=== PATIENT | male | born 1935 | race Caucasian/White ===

== ENCOUNTER → 2016-06-20 | Outpatient (CLI) | payer OTHER, BC | LOC: BHCLAF 09:30 | PROVIDERS: ATTEND Internal Medicine Cardiovascular Disease | DX: I25.10 Atherosclerotic heart disease of native coronary artery without angina pectoris (principal); I10 Essential (primary) hypertension; I65.29 Occlusion and stenosis of unspecified carotid artery; E78.5 Hyperlipidemia, unspecified; Z95.1 Presence of aortocoronary bypass graft | CPT/HCPCS: 93005-PO ==

== ENCOUNTER 2016-06-28 09:10 | Emergency (ER) | payer OTHER, BC ==
[2016-06-28 09:21] VITALS: PULSE 80; RESP 16; TEMP 96.8; O2SAT 95
--- NOTE | 2016-06-28 10:09 | UCPHY ---
H & P Time Seen by Provider: 06/28/16 09:41 Patient Type: Established HPI/ROS: This patient complains of pain and swelling at the left 1st metatarsophalangeal joint over the past 4 days. Symptoms are achy in nature and 4/10 intensity at baseline increasing 6/10 with walking and movement. He reports associated tenderness to the area explaining that the bed sheets bother him. He has never had these symptoms before. ROS: No fevers or other constitutional symptoms. Musculoskeletal: No other joint pains and no recent trauma. Neuro: No numbness. 5 point ROS is otherwise negative. Past Medical/Surgical History: Hypertension CABG Smoking Status: Never smoked Physical Exam: Physical Exam Vital signs are normal. General: No acute distress HEENT: Atraumatic. Eyes: Pupils equal and react to light. Extraocular motions are intact. Lungs: No respiratory distress. Cardiac: Brisk capillary refill is intact throughout. Pulses are 2+ and symmetric in the affected extremity. Skin: No rash or pallor. Extremities: Atraumatic normal except for left foot 1st metatarsophalangeal joint which reveals moderate swelling, mild erythema and tenderness. He has increased pain with range of motion of the toe. No other abnormal findings. No significant warmth to touch. Neuro: Alert with no sensorimotor deficits to the affected toe. Initial differential diagnosis: Gout, pseudogout, septic joint Constitutional: Initial Vital Signs Temperature (C) 36.0 C 06/28/16 09:18 Heart Rate 80 06/28/16 09:18 Respiratory Rate 16 06/28/16 09:18 O2 Sat (%) 95 06/28/16 09:18 O2 Delivery Mode Room Air Allergies/Adverse Reactions: No Known Allergies Allergy (Verified 06/28/16 09:17) Home Medications: Medication Instructions Recorded Aspirin [Aspirin 81mg (*)] 81 mg PO DAILY 06/11/14 Atorvastatin Calcium [Lipitor 80 80 mg PO HS 06/11/14 mg] Clopidogrel Bisulfate [Plavix (*)] 75 mg PO DAILY06 06/11/14 Hydrochlorothiazide [HCTZ (*)] 12.5 mg PO DAILY06 06/11/14 Metoprolol Tartrate [Lopressor 25 25 mg PO DAILY06 06/11/14 mg (*)] Ramipril [Altace] 10 mg PO DAILY06 06/11/14 Acetaminophen [Ofirmev] 06/28/16 Colchicine 0.6 mg PO AD #9 tablet 06/28/16 MDM/Departure - [facility] ED Course/Re-evaluation: This patient does not appear acutely ill. Findings appear pretty classic for gout. I counseled him regarding this. 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 Prescriptions: Colchicine 0.6 mg PO AD #9 tablet Referrals: Eugene Zamorano DO [Primary Care Provider] - As per Instructions - PQRS PQRS Measurement: 134: Depression screening and followup, PRIME MD-PHQ2 (12 years and older) Over the last 2 weeks, how often have you been bothered by any of the following problems? 1. Feeling down, depressed, or hopeless? 2. Little interest or pleasure in doing things? Patient answered no to both 1 and 2 130: Documentation of medications. Reviewed all patient medications, doses, route and frequency. 226: Do you smoke? [No.] 47: 65 and older: Advanced care planning. Patient designates surrogate decision maker as [Patient has advanced directive.] 51: 18 years old and older with diagnosis of COPD, spirometry performance. NA 52: 18 years old and older with COPD and symptoms of COPD or FEV1<60% predicted prescribed a B Agonist. NA
== END 2016-06-28 10:15 | disposition home or self-care (01) ==
LOC: CED 09:10
DX: M10.072 Idiopathic gout, left ankle and foot (principal)
CPT/HCPCS: 99214-PO; G0463-PO

== ENCOUNTER → 2016-08-29 | Outpatient (CLI) | payer OTHER, BC | LOC: BHCLAF 09:15 | PROVIDERS: ATTEND Internal Medicine | DX: I25.10 Atherosclerotic heart disease of native coronary artery without angina pectoris (principal); E78.5 Hyperlipidemia, unspecified; I10 Essential (primary) hypertension | CPT/HCPCS: 93880-PO ==

== ENCOUNTER → 2016-08-30 | Outpatient (CLI) | payer OTHER, BC | LOC: BHFA 09:00 | PROVIDERS: ATTEND Internal Medicine Cardiovascular Disease | DX: I25.10 Atherosclerotic heart disease of native coronary artery without angina pectoris (principal); I10 Essential (primary) hypertension | CPT/HCPCS: 78452; 93017; A9500; J2785 ==

== ENCOUNTER 2017-04-26 16:01 | Emergency (ER) | payer OTHER, BC ==
[2017-04-26 16:20] VITALS: RESP 16; TEMP 98.1
[2017-04-26 16:50] LABS: % IMMATURE GRANULYOCYTES 0.5 % (0.0-1.1); ABSOLUTE IMMATURE GRANULOCYTES 0.07 10^3/uL (0.00-0.10); ADD DIFF? NO; ADD MORPH? NO; ADD SCAN? NO; ATYPICAL LYMPHOCYTE FLAG 0 (0-99); FRAGMENT RBC FLAG 0 (0-99); HEMATOCRIT 44.4 % (40.0-51.0); HEMOGLOBIN 15.4 g/dL (13.7-17.5); LEFT SHIFT FLG 10 (0-99); LIPEMIA HEMOLYSIS FLAG 90 (0-99); MEAN CELL HEMOGLOBIN 31.5 pg (27.9-34.1); MEAN CELL HEMOGLOBIN CONCENTR. 34.7 g/dL (32.4-36.7); MEAN CELL VOLUME 90.8 fL (81.5-99.8); MEAN PLATELET VOLUME 9.9 fL (8.7-11.7); PLATELET CLUMPS FLAG 0 (0-99); PLATELET COUNT 274 10^3/uL (150-400); RED BLOOD CELL COUNT 4.89 10^6/uL (4.40-6.38); RED CELL DISTRIBUTION WIDTH 13.2 % (11.5-15.2)
--- NOTE | 2017-04-26 16:50 | EDPHY ---
H & P Time Seen by Provider: 04/26/17 16:18 HPI/ROS: HPI Upper abdominal pain. 81-year-old male by private vehicle. This patient reports that he received a flu shot 2 weeks ago this coming Monday. He reports that after this while at the gym on Monday and Monday he felt some body aches and some fatigue but then this cleared. He reports that this last Monday while at home he developed right upper quadrant pain described as a deep cramping ache that resolved on its own. He felt fine up until today when the pain came back. He was seen at an urgent care. He was then sent to the emergency department for evaluation. He states right now he does not have any significant pain. He reports having some shortness of breath associated with his pain. He otherwise denies any other associated signs or symptoms. His last meal was lunch earlier today. Last bowel movement earlier today. No bloody or melenic stool. He denies any urinary complaints. He has not had a fever. ROS: Constitutional: No fever, no chills. No weakness. Eyes: No discharge. No changes in vision. ENT: No sore throat. No nasal congestion or rhinorrhea. Respiratory: No cough. He had mild shortness of breath associated with the pain. Cardiac: No chest pain, no palpitations. Gastrointestinal: As above, no vomiting, no diarrhea. Genitourinary: No hematuria. No dysuria or increased frequency with urination. Musculoskeletal: No back pain. No neck pain. As above. Skin: No rashes. Neurological: No headache. No focal weakness or altered sensation. Past medical history: CABG, hypertension, hyperlipidemia. Social history: Nonsmoker. Currently here by himself. No alcohol. Physical Exam: General Appearance: Alert, no distress. This patient is responding to questions appropriately and in full sentences. This patient appears well- hydrated and well-nourished. Eyes: Pupils equal and round no pallor or injection. No lid edema, erythema or injection. Respiratory: There are no retractions, lungs are clear to auscultation with good air movement bilaterally. Cardiovascular: Regular rate and rhythm. No murmur. Gastrointestinal: Abdomen is soft and nontender, no masses, bowel sounds normal. No focal tenderness at McBurney's point. No Rendon sign. Neurological: Motor sensory function is grossly intact. Cranial nerves are normal. Gait is normal. Skin: Warm and dry, no rashes. Musculoskeletal: Neck is supple and nontender. Extremities are symmetrical. All joints range without pain or impingement. Psychiatric: No agitation. No depression. Database: EKG: EKG time is 5:59 p.m.; EKG shows a narrow complex normal sinus rhythm with a ventricular rate of 76. Left anterior fascicular block noted. Poor R-wave progression in the anterior leads. The AL, QRS, QT intervals are within normal limits. No evidence of right heart strain. Subtle ST depressions in inferior leads 2, 3 and AVF. Interpreted by me. Imaging: Chest x-ray PA and lateral; the cardiac mediastinal silhouette is unremarkable. Sternotomy wires. No evidence of infiltrate or pneumothorax. No acute cardiopulmonary disease process noted. Interpreted by me. CT pulmonary angiogram; no evidence of pulmonary embolism. No focal infiltrate or pneumonia. Possible pancreatic cancer and cholecystitis. Results were discussed with Dr. Tyrone Bhatt. Please see his report for further details. Right upper quadrant ultrasound; thickened gallbladder wall without significant inflammatory changes. No fluid. Multiple small freely movable gallstones seen. The ductal system is normal. Study otherwise unremarkable. Results were discussed with staff radiologist Dr. Xavier Mar. Procedures: Emergency department course: IV established. Vital signs reviewed. He provided us with a urine sample. He is not in any pain at this time. No nausea or vomiting. 7:00 p.m., discussed this patient's presentation and emergency department workup with on-call general surgeon Dr. Brendan Pulido. Plan will be to have the patient see Dr. Pulido in his office tomorrow for re-evaluation and further management. Dr. Pulido is aware of both the gallbladder findings as well as the pancreas findings seen on his CT. 7:15 p.m., patient re-evaluated. He is resting comfortably at this time. He has no pain. Repeat abdominal exam he is soft and without tenderness on palpation. I discussed the results of his emergency department workup with him in detail. I discussed the plan to have him seen by Dr. Pulido in the office tomorrow. He is in agreement with this plan. He understands his follow-up. Return to emergency department precautions were thoroughly reviewed with him. All of his questions were answered. He was discharged in good condition. Differential Diagnosis: The differential diagnosis on this patient includes but is not limited to biliary colic, cholecystitis, pulmonary embolism, pneumonia, costal chondritis. This represents a partial list of diagnoses considered. These considerations are based on history, physical exam, past history, reassessment and diagnostic testing. Smoking Status: Never smoked Constitutional: Initial Vital Signs Temperature (C) 36.7 C 04/26/17 16:15 Heart Rate 83 04/26/17 16:15 Respiratory Rate 16 04/26/17 16:15 Blood Pressure 140/76 H 04/26/17 16:15 O2 Sat (%) 93 04/26/17 16:15 O2 Delivery Mode Room Air Allergies/Adverse Reactions: No Known Allergies Allergy (Verified 04/26/17 16:43) Home Medications: Medication Instructions Recorded Aspirin [Aspirin 81mg (*)] 81 mg PO DAILY 06/11/14 Atorvastatin Calcium [Lipitor 80 80 mg PO HS 06/11/14 mg] Clopidogrel Bisulfate [Plavix (*)] 75 mg PO DAILY06 06/11/14 Hydrochlorothiazide [HCTZ (*)] 12.5 mg PO DAILY06 06/11/14 Metoprolol Tartrate [Lopressor 25 25 mg PO DAILY06 06/11/14 mg (*)] Ramipril [Altace] 10 mg PO DAILY06 06/11/14 Acetaminophen [Ofirmev] 06/28/16 Clarinex 04/26/17 Levitra 04/26/17 Vitamin C 04/26/17 Medical Decision Making - Diagnostics Imaging Results: Imaging Impressions Abdomen Ultrasound 04/26/17 16:45 Impression: 1. Tiny gallstones mobile within the gallbladder with mild gallbladder wall thickening and color flow enhancement suggestive of chronic cholecystitis. 2. Normal diameter common bile duct. 3. The pancreatic body and tail are obscured by overlying bowel gas. Findings discussed with Jared Du MD at 18:10 hour, 04/26/2017. Chest X-Ray 04/26/17 16:45 Impression: Radiographically similar to 06/11/2014. Dr. Jared Lam has also requested a CTA of the chest, which will be subsequently performed and separately reported. Chest/Thorax CTA 04/26/17 16:46 Impression: 1. Possible cholecystitis. Consider gallbladder ultrasound. 2. Suspect abnormal pancreatic tail. Recommend dedicated pancreatic CT, when the patient is clinically able. 3. Left lower pole thyroid enlargement with 15 mm mass. Consider irate ultrasound and correlation with thyroid function tests. 4. No pulmonary embolic disease. 5. Mild cardiomegaly with triple-vessel coronary artery disease. Results called and discussed with Jared Du MD, at 04/26/2017 17: 41 General information for patients regarding this examination can be found at [email or web address]. If you have questions or comments about this report, please contact me at (hospital) or [phone] (cell). - Data Points Laboratory Results: Laboratory Results 04/26/17 16:34 04/26/17 16:34 04/26/17 04/26/17 04/26/17 16:50 16:50 16:34 WBC RBC Hgb Hct MCV MCH MCHC RDW Plt Count MPV Neut % (Auto) Lymph % (Auto) [place] % (Auto) Eos % (Auto) Baso % (Auto) Nucleat RBC Rel Count Absolute Neuts (auto) Absolute Lymphs (auto) Absolute Monos (auto) Absolute Eos (auto) Absolute Basos (auto) Absolute Nucleated RBC Immature Gran % Immature Gran # Sodium 142 mEq/L mEq/L (134-144) Potassium 3.9 mEq/L mEq/L (3.5-5.2) Chloride 99 mEq/L mEq/L (97-110) Carbon Dioxide 27 mEq/l mEq/l (22-31) Anion Gap 16 mEq/L mEq/L (8-16) BUN 23 mg/dL mg/dL (7-23) Creatinine 0.9 mg/dL mg/dL (0.7-1.3) Estimated GFR > 60 Glucose 124 mg/dL H mg/dL (70-100) Calcium 9.3 mg/dL mg/dL (8.5-10.4) Total Bilirubin 1.5 mg/dL H mg/dL (0.1-1.4) Conjugated Bilirubin 0.2 mg/dL mg/dL (0.0-0.5) Unconjugated Bilirubin 1.3 mg/dL H mg/dL (0.0-1.1) AST 27 IU/L IU/L (17-59) ALT 50 IU/L IU/L (21-72) Alkaline Phosphatase 90 IU/L IU/L (38-126) Troponin I < 0.012 ng/mL ng/mL (0.000-0.034) Total Protein 6.9 g/dL g/dL (6.3-8.2) Albumin 3.8 g/dL g/dL (3.5-5.0) Lipase 83 IU/L IU/L (23-300) Urine Color YELLOW Urine Appearance CLEAR Urine pH 6.5 (5.0-7.5) Ur Specific [place] <= 1.005 (1.002-1.030) Urine Protein NEGATIVE (NEGATIVE) Urine Ketones NEGATIVE (NEGATIVE) Urine Blood NEGATIVE (NEGATIVE) Urine Nitrate NEGATIVE (NEGATIVE) Urine Bilirubin NEGATIVE (NEGATIVE) Urine Urobilinogen 0.2 EU EU (0.2-1.0) Ur Leukocyte Esterase NEGATIVE (NEGATIVE) Urine RBC NONE SEEN /hpf /hpf (0-3) Urine WBC NONE SEEN /hpf /hpf (0-3) Ur Epithelial Cells TRACE /lpf /lpf (NONE-1+) Urine Glucose NEGATIVE (NEGATIVE) 04/26/17 16:34 WBC 15.27 10^3/uL H 10^3/uL (3.80-9.50) RBC 4.89 10^6/uL 10^6/uL (4.40-6.38) Hgb 15.4 g/dL g/dL (13.7-17.5) Hct 44.4 % % (40.0-51.0) MCV 90.8 fL fL (81.5-99.8) MCH 31.5 pg pg (27.9-34.1) MCHC 34.7 g/dL g/dL (32.4-36.7) RDW 13.2 % % (11.5-15.2) Plt Count 274 10^3/uL 10^3/uL (150-400) MPV 9.9 fL fL (8.7-11.7) Neut % (Auto) 78.3 % H % (39.3-74.2) Lymph % (Auto) 12.8 % L % (15.0-45.0) [place] % (Auto) 7.2 % % (4.5-13.0) Eos % (Auto) 0.9 % % (0.6-7.6) Baso % (Auto) 0.3 % % (0.3-1.7) Nucleat RBC Rel Count 0.0 % % (0.0-0.2) Absolute Neuts (auto) 11.97 10^3/uL H 10^3/uL (1.70-6.50) Absolute Lymphs (auto) 1.96 10^3/uL 10^3/uL (1.00-3.00) Absolute Monos (auto) 1.10 10^3/uL H 10^3/uL (0.30-0.80) Absolute Eos (auto) 0.13 10^3/uL 10^3/uL (0.03-0.40) Absolute Basos (auto) 0.04 10^3/uL 10^3/uL (0.02-0.10) Absolute Nucleated RBC 0.00 10^3/uL 10^3/uL (0-0.01) Immature Gran % 0.5 % % (0.0-1.1) Immature Gran # 0.07 10^3/uL 10^3/uL (0.00-0.10) Sodium Potassium Chloride Carbon Dioxide Anion Gap BUN Creatinine Estimated GFR Glucose Calcium Total Bilirubin Conjugated Bilirubin Unconjugated Bilirubin AST ALT Alkaline Phosphatase Troponin I Total Protein Albumin Lipase Urine Color Urine Appearance Urine pH Ur Specific [place] Urine Protein Urine Ketones Urine Blood Urine Nitrate Urine Bilirubin Urine Urobilinogen Ur Leukocyte Esterase Urine RBC Urine WBC Ur Epithelial Cells Urine Glucose Departure - Departure Disposition: Home, Routine, Self-Care Clinical Impression: Right upper quadrant abdominal pain, Gallstones, Cholecystitis Condition: Good Instructions: Cholecystitis (ED) Additional Instructions: Read and follow provided instructions. Follow-up with Dr. Brendan Pulido, general surgeon, tomorrow in his office as discussed. Call his office at 8:30 to 9:00 a.m. tomorrow morning for appointment time. I spoke with Pieter youssef. He is expecting to see you tomorrow in his office. Dr. Pulido will also talk to you about your pancreas and further management. He will have access to all of your blood work and imaging studies done in the emergency department domon[facility]. Return to the emergency department at the [facility] off of [facility] for worsening pain, persisting pain, fever, vomiting or other serious concerns. Referrals: Brendan Pulido MD [Medical Doctor] - As per Instructions
[2017-04-26 16:54] LABS: COLOR YELLOW; LEUKOCYTE ESTERASE,URINE NEGATIVE (NEGATIVE); NITRITE,URINE NEGATIVE (NEGATIVE); PH,URINE 6.5 (5.0-7.5)
[2017-04-26 16:57] LABS: ALANINE AMINOTRANSFERASE 50 IU/L (21-72); ALBUMIN 3.8 g/dL (3.5-5.0); ALKALINE PHOSPHATASE 90 IU/L (38-126); ANION GAP 16 mEq/L (8-16); ASPARTATE AMINOTRANSFERASE 27 IU/L (17-59); BILIRUBIN,TOTAL 1.5 mg/dL (0.1-1.4); BILIRUBIN-CONJUGATED 0.2 mg/dL (0.0-0.5); BILIRUBIN-UNCONJUGATED 1.3 mg/dL (0.0-1.1); CALCIUM 9.3 mg/dL (8.5-10.4); CARBON DIOXIDE 27 mEq/l (22-31); CHLORIDE 99 mEq/L (97-110); CREATININE 0.9 mg/dL (0.7-1.3); GLOMERULAR FILTRATION RATE > 60; GLUCOSE 124 mg/dL (70-100); POTASSIUM 3.9 mEq/L (3.5-5.2); SODIUM 142 mEq/L (134-144); TOTAL PROTEIN 6.9 g/dL (6.3-8.2)
[2017-04-26 17:05] LABS: RBC,URINE NONE SEEN /hpf (0-3); WBC,URINE NONE SEEN /hpf (0-3)
[2017-04-26] MEDS ORDERED: IOPAMIDOL (ISOVUE 370) 100 ML BTL IV ONE (17:06)
--- NOTE | 2017-04-26 18:00 | CPEKG ---
Heart Rate: 76 RR Interval: 789 P-R Interval: 168 QRSD Interval: 94 QT Interval: 396 QTC Interval: 446 P Enloe: 85 QRS Enloe: -81 T Wave Enloe: -82 EKG Severity - ABNORMAL ECG - EKG Impression: SINUS RHYTHM EKG Impression: PROBABLE LEFT ATRIAL ABNORMALITY EKG Impression: LEFT ANTERIOR FASCICULAR BLOCK EKG Impression: BORDERLINE R WAVE PROGRESSION, ANTERIOR LEADS EKG Impression: inferior STT wave changes, cannot r/o ischemia Electronically Signed By: Leo Neumann 28-Apr-2017 06:15:02
[2017-04-26 19:42] VITALS: BP 150/74; PULSE 86; O2SAT 94
== END 2017-04-26 19:21 | disposition home or self-care (01) ==
LOC: CED 16:01
DX: K80.10 Calculus of gallbladder with chronic cholecystitis without obstruction (principal); I10 Essential (primary) hypertension; Z79.82 Long term (current) use of aspirin
CPT/HCPCS: 71020; 71275; 76705; 93005; 99285; Q9967; 80048-PO; 80076-PO; 81003-PO; 81015-PO; 83690-PO; 84484-PO; 85025-PO

== ENCOUNTER → 2017-04-27 | Outpatient (CLI) | payer OTHER, BC ==
[~2017-04-27] MED LIST: IOPAMIDOL (ISOVUE-300) 100 ML BTL ONE
== END ==
LOC: FIMAGING 16:49
PROVIDERS: ATTEND Surgery
DX: K81.9 Cholecystitis, unspecified (principal); R19.07 Generalized intra-abdominal and pelvic swelling, mass and lump
CPT/HCPCS: 74178; Q9967

== ENCOUNTER 2017-05-04 08:30 | Observation (INO) | payer OTHER, BC ==
[2017-06-23] MEDS ORDERED: LR 1,000 ML IV SCH (06:29)
[2017-06-23] MEDS ORDERED: ONDANSETRON 4 MG/2 ML VIAL IVP ONE (06:29)
[2017-06-23] MEDS ORDERED: ceFAZolin 2 GM/SWFI 2 GM/20 ML SYR IVP ONE (06:29)
[2017-06-23] MEDS ORDERED: LR 1,000 ML IV ONE (06:30)
[2017-06-23] MEDS ORDERED: PROPOFOL 200 MG/20 ML VIAL ONE (06:56)
[2017-06-23] MEDS ORDERED: fentaNYL 100 MCG/2 ML INJ ONE ×2 (06:56→10:14)
[2017-06-23] MEDS ORDERED: BUPIVACAINE 0.25% 30 ML SDV ONE (07:00)
--- NOTE | 2017-06-23 07:02 | PDANEPAE ---
ANE History of Present Illness cholelithiasis here for cholecystectomy ANE Past Medical History - Cardiovascular History Hx Hypertension: Yes Hx Arrhythmias: No Hx Chest Pain: No Hx Coronary Artery / Peripheral Vascular Disease: Yes Hx CHF / Valvular Disease: No Hx Palpitations: No Cardiovascular History Comment: cad. hx of cabg 2004. hyperlipidemia. htn - Pulmonary History Hx COPD: No Hx Asthma/Reactive Airway Disease: No Hx Recent Upper Respiratory Infection: No Hx Oxygen in Use at Home: No Hx Sleep Apnea: No Sleep Apnea Screening Result - Last Documented: Positive - Neurologic History Hx Cerebrovascular Accident: No Hx Seizures: No Hx Dementia: No - Endocrine History Hx Diabetes: No - Renal History Hx Renal Disorders: Yes Renal History Comment: frequency - Liver History Hx Hepatic Disorders: No - Neurological & Psychiatric Hx Hx Neurological and Psychiatric Disorders: No - Cancer History Hx Cancer: No - Congenital Disorder History Hx Congenital Disorders: No - GI History Hx Gastrointestinal Disorders: No Gastrointestinal History Comment: constipation with narcotics - Other Health History Other Health History: wears glasses. wears bilateral hearing aides. full upper denture. lower partial. bruises easily - Chronic Pain History Chronic Pain: No - Surgical History Prior Surgeries: bilateral cataracts 02/2017 and 03/2017. right TKA 04/2016. CABG 11 YRS AGO. 1982 CRANIOTOMY W/SHUNT. CIRCUMCISION ANE Review of Systems Review of Systems: - Exercise capacity METS (RN): 4 METS ANE Patient History - Allergies Allergies/Adverse Reactions: No Known Allergies Allergy (Verified 06/22/17 16:56) - Home Medications Home medications: home medication list seen and reviewed Home Medications: Aspirin [Aspirin 81mg (*)] 81 mg PO DAILY 06/11/14 [Last Taken 09/12/15] Atorvastatin Calcium [Lipitor 80 mg] 80 mg PO HS 06/11/14 [Last Taken 09/13/15] Hydrochlorothiazide [HCTZ (*)] 12.5 mg PO DAILY06 06/11/14 [Last Taken 09/12/15] Metoprolol Tartrate [Lopressor 25 mg (*)] 25 mg PO DAILY06 06/11/14 [Last Taken 09/15/15 04:00] Ramipril [Altace] 10 mg PO DAILY06 06/11/14 [Last Taken 09/14/15] Ascorbic Acid [Vitamin C 500 mg (*)] 500 mg PO DAILY 04/26/17 [Last Taken Unknown] Acetaminophen [Tylenol ES 500 mg (*)] 1,000 mg PO HS PRN 05/01/17 [Last Taken Unknown] Multivitamins [Multivitamin (*)] 1 each PO DAILY06 05/01/17 [Last Taken Unknown] - NPO status NPO Status: no food or drink >8 hours NPO Since - Liquids (Date): 06/22/17 NPO Since - Liquids (Time): 19:00 NPO Since - Solids (Date): 06/22/17 NPO Since - Solids (Time): 19:00 - Anes Hx Anes Hx: no prior problems - Smoking Hx Smoking Status: Never smoked - Alcohol Use Alcohol Use: Occasionally (1.5 glasses/day) - Family Anes Hx Family Anes Hx: none Family Hx Anesthesia Complications: none ANE Labs/Vital Signs - Vital Signs Blood Pressure: 161/86 Heart Rate: 71 Respiratory Rate: 16 O2 Sat (%): 94 Height: 168.91 cm Weight: 88.451 kg ANE Physical Exam - Airway Mallampati Score: Class 3 Mouth exam: dentures - Pulmonary Pulmonary: no respiratory distress - Cardiovascular Cardiovascular: regular rate and rhythym - ASA Status ASA Status: III ANE Anesthesia Plan Anesthesia Plan: general endotracheal anesthesia
[2017-06-23] MEDS ORDERED: ROCURONIUM 50 MG/5 ML VIAL ONE (07:05)
[2017-06-23] MEDS ORDERED: DEXAMETHASONE 4 MG/ML VIAL ONE (07:06)
[2017-06-23] MEDS ORDERED: ONDANSETRON 4 MG/2 ML VIAL ONE (07:06)
--- NOTE | 2017-06-23 07:19 | PDHPUP ---
History & Physical Update H&P update statement: This history and physical update is based on an assessment of the patient which was completed after admission or registration (within 24 hours), but prior to the surgery/procedure. H&P update: H&P reviewed & patient examined, no change in patient's condition since H&P completed
[2017-06-23] MEDS ORDERED: IOTHALAMATE MEG (CONRAY) 50 ML VIAL IV ONE (07:35)
[2017-06-23] MEDS ORDERED: SUGAMMADEX SODIUM 200 MG/2 ML VIAL IVP ONE (08:11)
[2017-06-23] MEDS ORDERED: fentaNYL 100 MCG/2 ML INJ IVP PRN (08:32)
[2017-06-23] MEDS ORDERED: HYDROCODONE/APAP 5/325 TAB PO PRN ×2 (08:32→09:31)
[2017-06-23] MEDS ORDERED: PROMETHAZINE HCL 25 MG/ML INJ IVP PRN (08:32)
[2017-06-23] MEDS ORDERED: OXYCODONE/APAP 5/325 TAB PO PRN (08:32)
[2017-06-23] MEDS ORDERED: NALOXONE HCL 0.4 MG/ML INJ IVP PRN (08:32)
[2017-06-23] MEDS ORDERED: HYDROmorphONE/DILAUDID 1 MG/ML INJ IVP PRN (08:32)
[2017-06-23] MEDS ORDERED: ONDANSETRON 4 MG/2 ML VIAL IVP PRN (08:32)
[2017-06-23] MEDS ORDERED: ACETAMINOPHEN 500 MG TAB PO PRN (08:32)
[2017-06-23] MEDS ORDERED: METOCLOPRAMIDE 10 MG/2 ML VIAL IVP PRN (09:30)
--- NOTE | 2017-06-23 09:36 | POSTOPPROG ---
Post Op Note Date of Operation: 06/23/17 Surgeon: Brendan Pulido (, FACS) Inspecting Supervisor: Charlotte Cottrell RN-FA Anesthesiologist: Paxton May MD Anesthesia: GET(General Endotracheal) Pre-op Diagnosis: cholelithiasis/chronic cholecystitis Post-op Diagnosis: same Procedure: lap ar/IOC Findings: pigmented stones obstructing cystic duct Inf/Abcess present in the surg proc area at time of surgery?: No Specimen(s): gallbladder
--- NOTE | 2017-06-23 10:30 | GOP ---
[f rep st] OPERATIVE REPORT DATE OF OPERATION: 06/23/2017 SURGEON: Brendan Pulido MD, FACS WASH BARREL LEADER: MARIA FERNANDA Tilley. ANESTHESIA: General endotracheal. ANESTHESIOLOGIST: Paxton May MD. PREOPERATIVE DIAGNOSIS: Cholelithiasis. POSTOPERATIVE DIAGNOSIS: Chronic cholecystitis and cholelithiasis. PROCEDURE PERFORMED: Laparoscopic cholecystectomy with operative cholangiogram. FINDINGS: Mild chronic cholecystitis with pigmented gallstones obstructing the cystic duct. No evidence of choledocholithiasis on operative cholangiogram. ESTIMATED BLOOD LOSS: 10 cc. DESCRIPTION OF PROCEDURE: After informed consent was obtained, the patient was brought to the operating room and placed under general anesthesia. The abdomen was prepped and draped in the usual fashion. Before proceeding, a time-out and identification of the patient was performed. 0.25% Marcaine was used to infiltrate all incision sites. A transverse incision was made below the umbilicus and carried through skin and subcutaneous tissues. Ventral traction was applied to the abdominal wall. A Veress needle was introduced into the peritoneal cavity. Position was confirmed by saline infusion. A pneumoperitoneum was established with CO2 gas to a pressure of 15 mmHg. The Veress needle was withdrawn and replaced with a 12 mm bladeless trocar. A 10 mm 30 degree scope was introduced and the peritoneal cavity was visualized. Additional 5 mm ports were placed in the subxiphoid position to the right of the falciform ligament, right upper quadrant midclavicular line and right upper quadrant anterior axillary line. Atraumatic grasping forceps were introduced. The gallbladder was grasped by the fundus and retracted cephalad elevating the liver edge. The Harmonic Scalpel was then used to take down omental adhesions to the gallbladder. The infundibulum was identified, grasped, and manipulated anteriorly and posteriorly as the peritoneum was dissected away from the triangle of Calot. The cystic duct was dissected circumferentially. The cystic artery was dispatched posterior and cephalad to the cystic duct with the Harmonic Scalpel. Once the cystic duct had been clearly seen to enter the gallbladder it was hemoclipped near the gallbladder, incised just distal to this clip and several small pigmented stones milked back from the distal cystic duct. Subsequently, a cholangiogram catheter was introduced and secured with a hemoclip. Cholangiograms were obtained which showed no evidence of choledocholithiasis. The cholangiogram catheter was removed and the distal cystic duct was doubly hemoclipped and divided. The gallbladder was then dissected away from the liver edge using the Harmonic Scalpel. It was retrieved through the umbilical port site and noted to contain dozens of small stones. This was submitted for permanent section. Hemostasis appeared secure. The umbilical fascial defect was repaired with a transfascial closure needle and 0 Vicryl suture. The subcutaneous tissues were approximated with 3-0 Monocryl suture. The skin was closed with 4-0 Monocryl suture in a subcuticular fashion. Mastisol and Steri-Strips were applied. Needle, sponge, and instrument count correct. COMPLICATIONS: None. /[id number]/MODL MTDD
--- NOTE | 2017-06-23 11:36 | POSTANESTH ---
Post Anesthetic Evaluation Cardiovascular Status: Normal, Stable, Similar to Pre-Op Cond Respiratory Status: Normal, Stable, Similar to Pre-op Cond. Level of Consciousness/Mental Status: Can Participate in Eval, Alert and Oriented Pain Control: Adequate, Prn Tx Ordered Nausea/Vomiting Control: Adequate, Prn Tx Ordered Complications Possibly Related to Anesthesia: None Noted
[2017-06-23 12:29] VITALS: BP 121/68; PULSE 76; RESP 16; TEMP 98.2; O2SAT 90
[2017-06-23] MEDS ORDERED: NON-FORMULARY NEW DRUG (Atorvastatin Calcium [Lipitor 80 Mg] 80 MG) PO SCH (21:00)
[2017-06-23] MEDS ORDERED: ATORVASTATIN CALCIUM 40 MG TAB PO SCH (21:00)
[2017-06-24] MEDS ORDERED: RAMIPRIL 5 MG CAP PO SCH (06:00)
[2017-06-24] MEDS ORDERED: METOPROLOL TARTRATE 25 MG TAB PO SCH (06:00)
[2017-06-24] MEDS ORDERED: HYDROCHLOROTHIAZIDE 25 MG TAB PO SCH (06:00)
[2017-06-24] MEDS ORDERED: RAMIPRIL 10 MG PO SCH (06:00)
[2017-06-24] MEDS ORDERED: HYDROCHLOROTHIAZIDE 12.5 MG CAP PO SCH (06:00)
[2017-06-24] MEDS ORDERED: ASPIRIN 81 MG CHEWABLE TAB PO SCH (09:00)
== END 2017-06-23 13:46 | disposition home or self-care (01) ==
LOC: F3E 06-23 05:58 → F3N 06-23 10:39
PROVIDERS: ADMIT Surgery; ATTEND Surgery
PROC: 0FT44ZZ Resection of Gallbladder, Percutaneous Endoscopic Approach (ICD-10-PCS; principal; 2017-06-23 07:30)
DX: K80.10 Calculus of gallbladder with chronic cholecystitis without obstruction (principal); E78.5 Hyperlipidemia, unspecified; I10 Essential (primary) hypertension; I25.10 Atherosclerotic heart disease of native coronary artery without angina pectoris; Z95.1 Presence of aortocoronary bypass graft
CPT/HCPCS: 47563; 88304; J0690; J1100; J2405; J2704; J3010; Q9961

== ENCOUNTER → 2017-12-27 | Outpatient (CLI) | payer OTHER, BC | DX: K86.9 Disease of pancreas, unspecified (principal) | CPT/HCPCS: 74177; Q9967; 82565-PO ==

== ENCOUNTER → 2018-03-08 | Outpatient (CLI) | payer OTHER, BC | LOC: CIMAGING 12:02 | PROVIDERS: ATTEND Family Medicine | DX: M25.511 Pain in right shoulder (principal) | CPT/HCPCS: 73030-PO ==